=== PATIENT | female | born 1970 | race Caucasian/White ===

== ENCOUNTER 2020-10-03 04:00 | Emergency (ER) | payer BC ==
[~2020-10-03] VITALS: Ht 157.5 cm; Wt 59.1 kg
[2020-10-03 04:34] VITALS: BP 113/67
[2020-10-03] MEDS ORDERED: CIPR2.5D21 RIGHTEYE (06:26)
== END 2020-10-03 07:48 | disposition home or self-care (01) ==
LOC: ER 04:01
DX: H10.9 Unspecified conjunctivitis (principal); H57.11 Ocular pain, right eye; Z79.2 Long term (current) use of antibiotics; Z72.0 Tobacco use
CPT/HCPCS: 99283